=== PATIENT | male | born 1960 | race Caucasian/White ===

== ENCOUNTER 2016-11-07 13:16 | Outpatient (CLI) | payer OTHER | END 2016-11-07 13:17 | disposition home or self-care (01) | DX: I48.2 Chronic atrial fibrillation (principal) ==

== ENCOUNTER 2016-11-16 09:50 | Outpatient (CLI) | payer OTHER | END 2016-11-16 09:51 | disposition home or self-care (01) | DX: I48.91 Unspecified atrial fibrillation (principal) ==

== ENCOUNTER 2016-12-28 16:31 | Outpatient (CLI) | payer OTHER ==
[2016-12-29 11:15] LABS: INR 1.8 (0.8-1.2); PT - PROTHROMBIN TIME 20.2 secs (9.9-12.6)
== END 2016-12-28 16:32 | disposition home or self-care (01) ==
LOC: LAB.F 16:31
PROVIDERS: ATTEND Nurse Practitioner Family
DX: I48.91 Unspecified atrial fibrillation (principal)
CPT/HCPCS: 36415; 85610

== ENCOUNTER 2017-03-13 10:37 | Outpatient (CLI) | payer OTHER | END 2017-03-13 10:38 | disposition home or self-care (01) | LOC: LAB.F 10:37 | PROVIDERS: ATTEND Nurse Practitioner Family | DX: I48.91 Unspecified atrial fibrillation (principal) | CPT/HCPCS: 36415; 85610 ==

== ENCOUNTER 2017-05-09 15:16 | Outpatient (CLI) | payer OTHER ==
[2017-05-10 13:12] LABS: INR 2.3 (0.8-1.2)
== END 2017-05-09 15:17 | disposition home or self-care (01) ==
LOC: LAB.F 15:16
PROVIDERS: ATTEND Internal Medicine Cardiovascular Disease
DX: I48.91 Unspecified atrial fibrillation (principal)
CPT/HCPCS: 36415; 85610

== ENCOUNTER 2017-07-27 08:00 | Outpatient (CLI) | payer OTHER ==
[2017-07-27 18:22] LABS: INR 1.8 (0.8-1.2); PT - PROTHROMBIN TIME 20.3 secs (9.9-12.6)
== END 2017-07-27 08:01 | disposition home or self-care (01) ==
LOC: LAB.F 08:00
PROVIDERS: ATTEND Internal Medicine Cardiovascular Disease
DX: I48.91 Unspecified atrial fibrillation (principal)
CPT/HCPCS: 36415; 85610

== ENCOUNTER 2017-08-03 08:00 | Outpatient (CLI) | payer OTHER | END 2017-08-03 08:01 | disposition home or self-care (01) | LOC: LAB.N 08:00 | PROVIDERS: ATTEND Internal Medicine Cardiovascular Disease | DX: I48.91 Unspecified atrial fibrillation (principal) | CPT/HCPCS: 85610 ==

== ENCOUNTER 2017-09-01 13:52 | Outpatient (CLI) | payer SELFPAY | END 2017-09-01 13:53 | disposition home or self-care (01) | LOC: LAB.N 13:52 | PROVIDERS: ATTEND Internal Medicine Cardiovascular Disease | DX: I48.91 Unspecified atrial fibrillation (principal) | CPT/HCPCS: 85610 ==

== ENCOUNTER 2017-10-24 12:16 | Outpatient (CLI) | payer SELFPAY | END 2017-10-24 12:17 | disposition home or self-care (01) | LOC: LAB.F 12:16 | PROVIDERS: ATTEND Internal Medicine Cardiovascular Disease | DX: I48.91 Unspecified atrial fibrillation (principal) | CPT/HCPCS: 85610 ==

== ENCOUNTER 2018-01-03 12:23 | Outpatient (CLI) | payer SELFPAY | END 2018-01-03 12:24 | disposition home or self-care (01) | LOC: LAB.F 12:23 | PROVIDERS: ATTEND Internal Medicine Cardiovascular Disease | DX: I48.91 Unspecified atrial fibrillation (principal) | CPT/HCPCS: 85610 ==

== ENCOUNTER 2018-02-16 08:26 | Outpatient (CLI) | payer SELFPAY | END 2018-02-16 08:27 | disposition home or self-care (01) | LOC: LAB.F 08:26 | PROVIDERS: ATTEND Internal Medicine Cardiovascular Disease | DX: I48.91 Unspecified atrial fibrillation (principal) | CPT/HCPCS: 85610 ==

== ENCOUNTER → 2018-04-30 | Outpatient (CLI) | payer SELFPAY ==
[2018-04-30 18:23] LABS: PT - PROTHROMBIN TIME 51.7 secs (9.9-12.6)
[2018-04-30 21:20] LABS: INR 4.9 (0.8-1.2)
== END ==
LOC: LAB.S 08:00
PROVIDERS: ATTEND Internal Medicine Cardiovascular Disease
DX: I48.91 Unspecified atrial fibrillation (principal)
CPT/HCPCS: 36415; 85610

== ENCOUNTER 2018-05-14 13:01 | Outpatient (CLI) | payer SELFPAY | END 2018-05-14 13:02 | disposition home or self-care (01) | LOC: LAB.N 13:01 | PROVIDERS: ATTEND Internal Medicine Cardiovascular Disease | DX: I48.91 Unspecified atrial fibrillation (principal) | CPT/HCPCS: 85610 ==

== ENCOUNTER 2018-05-25 08:09 | Outpatient (CLI) | payer SELFPAY | END 2018-05-25 08:10 | disposition home or self-care (01) | LOC: LAB.F 08:09 | PROVIDERS: ATTEND Internal Medicine Cardiovascular Disease | DX: I48.91 Unspecified atrial fibrillation (principal) | CPT/HCPCS: 85610 ==

== ENCOUNTER 2018-08-16 12:08 | Outpatient (CLI) | payer SELFPAY | END 2018-08-16 12:09 | disposition home or self-care (01) | LOC: LAB.F 12:08 | PROVIDERS: ATTEND Internal Medicine Cardiovascular Disease | DX: I48.91 Unspecified atrial fibrillation (principal) | CPT/HCPCS: 85610 ==

== ENCOUNTER 2022-06-07 18:06 | Outpatient (CLI) | payer MEDICARE ==
--- NOTE | 2022-06-07 16:22 | XRAY Report ---
PROCEDURE: Knee 3 View LT INDICATIONS: LEFT KNEE PAIN TECHNIQUE: 3 views of the left knee(s) were acquired. COMPARISON: None. FINDINGS: Bones: No fractures or dislocations. No suspicious bony lesions. Mild left knee tricompartmental os teoarthritic degenerative changes. Soft tissues: No joint effusion. No suspicious soft tissue calcifications. IMPRESSION: Left knee tricompartmental osteoarthritis. Reviewed by: Josey Rowe MD, PhD on 06/07/2022 4:21 PM PDT Approved by: Josey Rowe MD, PhD on 06/07/2022 4:21 PM PDT Station ID: [id number]
== END 2022-06-07 18:07 | disposition home or self-care (01) ==
LOC: DI.S 18:06
PROVIDERS: ATTEND Physician Assistant
DX: M17.12 Unilateral primary osteoarthritis, left knee (principal)